=== PATIENT | male | born 1975 | race Caucasian/White ===

== ENCOUNTER 2018-02-14 15:31 | Emergency (ER) | payer OTHER ==
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
[2018-02-14] MEDS ORDERED: KETOROLAC TROM 10MG TAB PO ONE (15:50)
[2018-02-14] MEDS ORDERED: KET10 PO (16:38)
[2018-02-14 17:00] VITALS: BP 131/86
[2018-02-14] MEDS ORDERED: ACET/HYDROC 5/325MG TH ER ONLY 2 TAB/BOTTLE PO ONE (17:05)
== END 2018-02-14 17:24 | disposition home or self-care (01) ==
LOC: ER 15:33
DX: S81.011A Laceration without foreign body, right knee, initial encounter (principal); S20.211A Contusion of right front wall of thorax, initial encounter; V86.52XA Driver of snowmobile injured in nontraffic accident, initial encounter
CPT/HCPCS: 99283